=== PATIENT | male | born 1935 | race Caucasian/White ===

== ENCOUNTER 2021-03-05 12:54 | Emergency (ER) | payer MEDICARE, OTHER ==
[~2021-03-05] VITALS: Ht 170.2 cm; Wt 83.9 kg
[~2021-03-05 12:54] MED LIST: ERYTHROMYCIN3.5 GM OS; GLIMEPIRIDE1 MG PO; LISINOPRIL10 MG PO; LOSARTAN POTASS50 MG PO; METFORMIN HCL500 M1 PO; ONDANSETRON ODT4 MG PO; SULFAMETHOXAZO1 EAC1 PO; XARELTO20 MG PO
[2021-03-05] MEDS ORDERED: METOPROLOL SUCC25 MG PO (13:08)
[2021-03-05] MEDS ORDERED: TRULICITY1.5 MG/0.5 SUB-Q (13:08)
[2021-03-05] MEDS ORDERED: FARXIGA5 MG PO (13:08)
[2021-03-05] MEDS ORDERED: TAMSULOSIN HCL0.4 MG PO (13:09)
--- NOTE | 2021-03-05 18:33 | EKG ---
[facility] [address] [facility] [place] [address] Signed Sinus rhythm with 1st degree AV block with premature supraventricular complexes Otherwise normal ECG When compared with ECG of 29-MAY-2020 23:48, Sinus rhythm has replaced Atrial fibrillation QT has lengthened Confirmed by MAGUE PARSONS MD ([id number]) on 03/05/2021 6:33:50 PM Electronically Signed By: MAGUE PARSONS MD 03/05/21 [id number] PATIENT NAME: ARPITA BOBO Electrocardiogram DATE OF : 39 PHYSICIAN: MAGUE PARSONS MD REPORT #: [id number] REPORT IS CONFIDENTIAL AND NOT TO BE RELEASED WITHOUT AUTHORIZATION
== END 2021-03-05 18:46 | disposition short-term general hospital (02) ==
LOC: ED 12:54
DX: I20.0 Unstable angina (principal); I21.4 Non-ST elevation (NSTEMI) myocardial infarction; E11.9 Type 2 diabetes mellitus without complications; I48.91 Unspecified atrial fibrillation; Z79.899 Other long term (current) drug therapy; Z79.84 Long term (current) use of oral hypoglycemic drugs; Z20.822 Contact with and (suspected) exposure to COVID-19
CPT/HCPCS: 71045; 80053; 83735; 84484; 85025; 85610; 85730; 93005; 93010; 96374; 99285-25; C9803; J1644; U0003

== ENCOUNTER 2021-04-05 08:31 | Emergency (ER) | payer MEDICARE, OTHER ==
[~2021-04-05] VITALS: Ht 170.2 cm; Wt 83.9 kg
[~2021-04-05 08:31] MED LIST changes: +FARXIGA5 MG PO; +METOPROLOL SUCC25 MG PO; +TAMSULOSIN HCL0.4 MG PO; +TRULICITY1.5 MG/0.5 SUB-Q
[2021-04-05] MEDS ORDERED: VITAMIN D325 MC2 PO (08:44)
[2021-04-05] MEDS ORDERED: MELATIN3 MG PO (08:45)
[2021-04-05] MEDS ORDERED: VITAMIN B-12500 MC2 PO (08:45)
[2021-04-05] MEDS ORDERED: GAVILAX17 GM PO (08:46)
[2021-04-05] MEDS ORDERED: ATORVASTATIN CA80 MG PO (08:46)
[2021-04-05] MEDS ORDERED: AMIODARONE HCL200 MG PO (08:46)
[2021-04-05] MEDS ORDERED: FAMOTIDINE20 MG PO (08:48)
[2021-04-05] MEDS ORDERED: COREG3.125 MG PO (08:48)
[2021-04-05] MEDS ORDERED: PLAVIX75 MG PO (10:15)
--- NOTE | 2021-04-05 12:55 | EKG ---
[facility] [address] [facility] [place], [place] [address] Signed Atrial flutter with variable AV block Abnormal ECG When compared with ECG of 05-MAR-2021 13:00, Atrial flutter has replaced Sinus rhythm T wave inversion now evident in Lateral leads Confirmed by MAGUE PARSONS MD ([id number]) on 04/05/2021 12:55:12 PM Electronically Signed By: MAGUE PARSONS MD 04/05/21 [id number] PATIENT NAME: JERAMIEARPITAAvi SCHUMACHER Electrocardiogram DATE OF : 39 PHYSICIAN: MAGUE PARSONS MD REPORT #: [id number] REPORT IS CONFIDENTIAL AND NOT TO BE RELEASED WITHOUT AUTHORIZATION
== END 2021-04-05 10:34 | disposition home or self-care (01) ==
LOC: ED 08:31
DX: G45.9 Transient cerebral ischemic attack, unspecified (principal); E11.9 Type 2 diabetes mellitus without complications; I48.91 Unspecified atrial fibrillation; Z79.899 Other long term (current) drug therapy; Z79.84 Long term (current) use of oral hypoglycemic drugs
CPT/HCPCS: 70450; 70496; 70498; 80053; 84484; 85025; 93005; 93010; 99285-25; Q9967

== ENCOUNTER 2021-06-09 15:41 | Emergency (ER) | payer OTHER, MEDICARE ==
[~2021-06-09] VITALS: Ht 170.2 cm; Wt 83.9 kg
[~2021-06-09 15:41] MED LIST changes: +AMIODARONE HCL200 MG PO; +ATORVASTATIN CA80 MG PO; +COREG3.125 MG PO; +FAMOTIDINE20 MG PO; +GAVILAX17 GM PO; +MELATIN3 MG PO; +PLAVIX75 MG PO; +VITAMIN B-12500 MC2 PO; +VITAMIN D325 MC2 PO
--- NOTE | 2021-06-10 21:27 | EKG ---
[facility] [address] [facility] [place] [address] Signed Atrial fibrillation Nonspecific intraventricular conduction delay Prolonged QT Abnormal ECG When compared with ECG of 05-APR-2021 09:16, Atrial fibrillation has replaced Atrial flutter Confirmed by SAÚL EPPERSON DO ([id number]) on 06/10/2021 9:27:23 PM Electronically Signed By: SAÚL EPPERSON DO 06/10/[id number] PATIENT NAME: ARPITA BOBO Electrocardiogram DATE OF : 39 PHYSICIAN: SAÚL EPPERSON DO REPORT #: [id number] REPORT IS CONFIDENTIAL AND NOT TO BE RELEASED WITHOUT AUTHORIZATION
== END 2021-06-09 18:06 | disposition home or self-care (01) ==
LOC: ED 15:41
DX: S00.91XA Abrasion of unspecified part of head, initial encounter (principal); Z23 Encounter for immunization; E11.9 Type 2 diabetes mellitus without complications; I48.91 Unspecified atrial fibrillation; W01.0XXA Fall on same level from slipping, tripping and stumbling without subsequent striking against object, initial encounter; Z79.84 Long term (current) use of oral hypoglycemic drugs; Z79.01 Long term (current) use of anticoagulants; Z79.899 Other long term (current) drug therapy
CPT/HCPCS: 70450; 72125; 90471; 90715; 93005; 93010; 99284-25